=== PATIENT | female | born 1960 | race Caucasian/White ===

== ENCOUNTER 2016-06-07 22:47 | Emergency (ER) | payer MEDICARE, OTHER ==
[~2016-06-07] VITALS: Ht 157.5 cm; Wt 64.0 kg
[~2016-06-07 22:47] MED LIST: CIPR500T4 PO; CLIN-73 PO; HYDR-762 PO; IBUP-1542 PO
[2016-06-07 22:49] VITALS: Ht 157.5 cm; Wt 64.0 kg
== END 2016-06-08 01:37 | disposition left against medical advice (07) ==
LOC: FTE 22:47
DX: Z53.21 Procedure and treatment not carried out due to patient leaving prior to being seen by health care provider (principal)

== ENCOUNTER 2016-06-09 01:33 | Emergency (ER) | payer SELFPAY ==
[~2016-06-09] VITALS: Ht 162.6 cm; Wt 62.5 kg
[2016-06-09 02:12] VITALS: Ht 162.6 cm; Wt 62.5 kg
== END 2016-06-09 06:09 | disposition left against medical advice (07) ==
LOC: FTE 01:33
DX: Z53.21 Procedure and treatment not carried out due to patient leaving prior to being seen by health care provider (principal)

== ENCOUNTER 2016-07-02 13:26 | Emergency (ER) | payer MEDICARE, OTHER ==
[~2016-07-02] VITALS: Ht 162.6 cm; Wt 63.0 kg
[2016-07-02 13:32] VITALS: Ht 162.6 cm; Wt 63.0 kg
[2016-07-02] MEDS ORDERED: DOXY100T20 PO (15:03)
[2016-07-02] MEDS ORDERED: NAPR-260 PO (15:04)
--- NOTE | 2016-07-02 15:09 | ERD ---
ER Documentation Chief Complaint Date/Time DATE: 07/02/16 TIME: 15:05 Chief Complaint abcess on rt thigh x 4 days HPI This a 55-year-old female who presents the emergency department today for an abscess on her right thigh that has been there for the past 4-5 days. Patient has had abscesses in the past. She is hepatitis C positive. She is drug abuser. Denies any fevers or chills. ROS All systems reviewed and are negative except as per history of present illness. Medications Home Meds Active Scripts Naproxen* (Naprosyn*) 500 Mg Tablet, 500 MG PO BID Y for PAIN AND/OR INFLAMMATION, #30 TAB Prov:ADAIR JORGENSEN PA-C 07/02/16 Doxycycline Hyclate* (Doxycycline Hyclate*) 100 Mg Tablet.dr, 100 MG PO BID for 10 Days, TAB Prov:ADAIR JORGENSEN PA-C 07/02/16 Clindamycin Hcl* (Clindamycin Hcl*) 300 Mg Capsule, 300 MG PO TID for 10 Days, CAP Prov:MARIAM NG NP 04/04/16 Ibuprofen* (Motrin*) 600 Mg Tab, 600 MG PO Q6H Y for PAIN AND OR ELEVATED TEMP, #30 TAB Prov:MARIAM NG NP 04/04/16 Clindamycin Hcl* (Clindamycin Hcl*) 300 Mg Capsule, 300 MG PO TID for 10 Days, CAP Prov:GINNY EVANGELISTA PA-C 01/18/16 Clindamycin Hcl* (Clindamycin Hcl*) 300 Mg Capsule, 300 MG PO TID for 10 Days, CAP Prov:ROMIE PANDA MD 11/16/15 Hydrocodone Bit-Acetaminophen* ([place]*) 10-325 Mg Tablet, 1 TAB PO Q6 Y for PAIN , #7 TAB Prov:ROMIE PANDA MD 10/26/15 Ciprofloxacin Hcl* (Ciprofloxacin Hcl*) 500 Mg Tablet, 500 MG PO BID for 7 Days , TAB Prov:ROMIE PANDA MD 10/26/15 Allergies Allergies: Coded Allergies: cephalexin (Verified Allergy, Unknown, sob, 01/18/16) sulfamethoxazole (Verified Allergy, Unknown, sob, 01/18/16) trimethoprim (Verified Allergy, Unknown, sob, 01/18/16) PMhx/Soc History of Surgery: No Anesthesia Reaction: No Hx Neurological Disorder: No Hx Respiratory Disorders: No Hx Cardiac Disorders: No Hx Psychiatric Problems: No Hx Miscellaneous Medical Probl: Yes (Hep C) Hx Alcohol Use: No Hx Substance Use: Yes (HEROINE LAST USED 1500 TODAY) Hx Tobacco Use: Yes (1PACK/WEEK) Smoking Status: Current every day smoker Physical Exam Vitals Vital Signs Date Time Temp Pulse Resp B/P Pulse Ox O2 Delivery O2 Flow Rate FiO2 07/02/16 13:32 98.2 98 18 115/57 97 Physical Exam Const: Pleasant, no acute distress Head: Atraumatic Eyes: Normal Conjunctiva ENT: Normal External Ears, Nose and Mouth. Neck: Full range of motion..~ No meningismus. Resp: Clear to auscultation bilaterally Cardio: Regular rate and rhythm, no murmurs Abd: Soft, non tender, non distended. Normal bowel sounds Skin: Right thigh with 7 cm area of erythema and approximately 4 cm center of firmness. No purulent drainage. Mild tenderness palpation. Ext: No cyanosis, or edema Neur: Awake and alert Psych: Normal Mood and Affect Procedures/MDM This is a 55-year-old female who presents the emergency department today for a right thigh abscess. Patient has had these abscesses in the past. She is a drug abuser and does inject herself with heroin. Patient also reports using meth on occasion. She indicated that at one point she was given Keflex and Bactrim to treat an abscess and she had an allergic reaction to 1 of them but she is not sure which one. Patient has been seen here in this emergency department in the past and her last visit was in March for an abscess. At that time she was given clindamycin. Today on physical exam there is an approximate 7 cm area of erythema and 4 cm area of firmness and induration. There is no fluctuance and I do not feel the patient would benefit from an attempted incision and drainage at this time. I have explained this to the patient. I have explained to the patient that she will be placed on antibiotics and will need to return to the emergency department in 48 hours for a wound check. She is afebrile and otherwise well-appearing. Patient symptoms at this time is consistent with abscess and localized cellulitis. Low suspicion for deep space infection or tracking infection. Patient will be given a prescription for Naprosyn and doxycycline. I discussed at length smoking cessation with the patient as well as getting herself back into a drug rehab facility. Patient appeared motivated today however I have instructed her that she would need to follow-up with this with social work. Patient understood. Discussed the patient with Dr. Regalado and he is in agreement with the plan . Departure Diagnosis: Primary Impression: Abscess Condition: Fair Patient Instructions: Abscess, Antiobiotic Treatment Only Referrals: MADELINE HOOD MD (PCP) Additional Instructions: Call your primary care doctor TOMORROW for an appointment during the next 1-2 days.See the doctor sooner or return here if your condition worsens before your appointment time. Wound check in 48 hours Take antibiotics as prescribed Take Naprosyn or Motrin for pain ADAIR JORGENSEN PA-C Jul 02, 2016 15:09
== END 2016-07-02 15:30 | disposition home or self-care (01) ==
LOC: FTE 13:26
DX: L02.415 Cutaneous abscess of right lower limb (principal); F17.210 Nicotine dependence, cigarettes, uncomplicated
CPT/HCPCS: 99283

== ENCOUNTER 2016-11-18 16:40 | Emergency (ER) | payer MEDICARE, OTHER ==
[~2016-11-18] VITALS: Ht 162.6 cm; Wt 62.0 kg
[~2016-11-18 16:40] MED LIST changes: +DOXY100T20 PO; +NAPR-260 PO
[2016-11-18 16:42] VITALS: Ht 162.6 cm; Wt 62.0 kg
[2016-11-18] MEDS ORDERED: IBUPROFEN 600 MG TAB PO ONE (18:00)
[2016-11-18 18:07] LABS: BASOPHIL # 0.1 10^3/ul (0.0-0.1); BASOPHILS % 0.5 % (0.0-2.0); EOSINOPHILS # 0.1 10^3/ul (0.0-0.5); EOSINOPHILS % 0.5 % (0.0-7.0); HEMATOCRIT 32.9 % (37.0-47.0); HEMOGLOBIN 11.6 g/dl (12.0-16.0); LYMPHOCYTES # 1.1 10^3/ul (0.8-2.9); LYMPHOCYTES % 10.7 % (15.0-51.0); MEAN CORPUSCULAR HEMOGLOBIN 30.5 pg (29.0-33.0); MEAN CORPUSCULAR HGB CONC 35.3 g/dl (32.0-37.0); MEAN CORPUSCULAR VOLUME 86.6 fl (82.0-101.0); MEAN PLATELET VOLUME 10.5 fl (7.4-10.4); MONOCYTE # 0.7 10^3/ul (0.3-0.9); MONOCYTES % 6.8 % (0.0-11.0); NEUTROPHIL # 8.5 10^3/ul (1.6-7.5); NEUTROPHILS % 81.2 % (39.0-77.0); PLATELET COUNT 236 10^3/UL (140-415); RED CELL DISTRIBUTION WIDTH 11.9 % (11.5-14.5); WHITE BLOOD COUNT 10.5 10^3/ul (4.8-10.8)
--- NOTE | 2016-11-18 18:19 | RADRPT ---
PROCEDURE: US Lower extremity Venous. CLINICAL INDICATION: calf pain and swelling, r/o DVT TECHNIQUE: Multiple sonographic images of the right lower extremity deep venous system was obtaine d utilizing grayscale, color-flow, compressive sonography and doppler imaging with augmentation. Th e images were reviewed on a PACS workstation. COMPARISON: None. FINDINGS: There is normal compressibility and flow within the right common femoral, deep femoral, superficial femoral and popliteal veins. The deep veins the calf were incompletely visualized. IMPRESSION: No sonographic evidence for deep venous thrombosis in the right lower extremity. Physician Dino Date Time Electronically viewed and signed by Physician Dino on 11/18/2016 18:19 ML/
[2016-11-18 18:28] LABS: CALCIUM 8.7 mg/dl (8.4-10.2); CREATININE 1.08 mg/dl (0.44-1.00); INR 0.95; POTASSIUM 3.6 mmol/L (3.5-5.1); PROTIME 12.7 Sec (12.2-14.2)
[2016-11-18 18:30] LABS: D-DIMER 995.06 ng/ml (<460)
[2016-11-18 19:12] LABS: URINE BLOOD (Dip) POC Negative (NEGATIVE)
--- NOTE | 2016-11-18 19:43 | ERD ---
ER Documentation Chief Complaint Date/Time DATE: 11/18/16 TIME: 19:42 Chief Complaint RT CALF PAIN / CRAMPS X 3 DAYS , SENT BY PMD TO R/O DVT HPI This is a 56-year-old female presenting to the emergency department with right calf pain, tenderness and cramping 3 days. Patient went to urgent care earlier today and was told to go to the emergency room to rule out a DVT. Patient is currently homeless and states she is walking around frequently. No suspected trauma to area. No recent prolonged immobilization or recent surgery. No obesity. No heart failure. Patient is not . No oral contraceptive use. Patient does smoke daily. ROS All systems reviewed and are negative except as per history of present illness. Medications Home Meds Active Scripts Naproxen* (Naprosyn*) 500 Mg Tablet, 500 MG PO BID Y for PAIN AND/OR INFLAMMATION, #30 TAB Prov:ADAIR JORGENSEN PA-C 07/02/16 Doxycycline Hyclate* (Doxycycline Hyclate*) 100 Mg Tablet.dr, 100 MG PO BID for 10 Days, TAB Prov:ADAIR JORGENSEN PA-C 07/02/16 Clindamycin Hcl* (Clindamycin Hcl*) 300 Mg Capsule, 300 MG PO TID for 10 Days, CAP Prov:MARIAM NG NP 04/04/16 Ibuprofen* (Motrin*) 600 Mg Tab, 600 MG PO Q6H Y for PAIN AND OR ELEVATED TEMP, #30 TAB Prov:MARIAM NG NP 04/04/16 Clindamycin Hcl* (Clindamycin Hcl*) 300 Mg Capsule, 300 MG PO TID for 10 Days, CAP Prov:GINNY EVANGELISTA PA-C 01/18/16 Clindamycin Hcl* (Clindamycin Hcl*) 300 Mg Capsule, 300 MG PO TID for 10 Days, CAP Prov:ROMIE PANDA MD 11/16/15 Hydrocodone Bit-Acetaminophen* ([place]*) 10-325 Mg Tablet, 1 TAB PO Q6 Y for PAIN , #7 TAB Prov:ROMIE PNADA MD 10/26/15 Ciprofloxacin Hcl* (Ciprofloxacin Hcl*) 500 Mg Tablet, 500 MG PO BID for 7 Days , TAB Prov:ROMIE PANDA MD 10/26/15 Allergies Allergies: Coded Allergies: cephalexin (Verified Allergy, Unknown, sob, 11/18/16) sulfamethoxazole (Verified Allergy, Unknown, sob, 11/18/16) trimethoprim (Verified Allergy, Unknown, sob, 11/18/16) PMhx/Soc Medical and Surgical Hx: pt denies Surgical Hx History of Surgery: No Anesthesia Reaction: No Hx Neurological Disorder: No Hx Respiratory Disorders: No Hx Cardiac Disorders: No Hx Psychiatric Problems: No Hx Miscellaneous Medical Probl: Yes (Hep C) Hx Alcohol Use: No Hx Substance Use: Yes (HEROINE LAST USED 1500 TODAY) Hx Tobacco Use: Yes (1PACK/WEEK) Smoking Status: Current every day smoker Physical Exam Vitals Vital Signs Date Time Temp Pulse Resp B/P Pulse Ox O2 Delivery O2 Flow Rate FiO2 11/18/16 19:44 98.3 98 18 112/88 97 Room Air 11/18/16 16:42 97.9 114 18 159/67 97 Physical Exam Const: [] Head: Atraumatic Eyes: Normal Conjunctiva ENT: Normal External Ears, Nose and Mouth. Neck: Full range of motion..~ No meningismus. Resp: Clear to auscultation bilaterally Cardio: Regular rate and rhythm, no murmurs Abd: Soft, non tender, non distended. Normal bowel sounds Skin: No petechiae or rashes Back: No midline or flank tenderness Ext: No cyanosis, or edema Neur: Awake and alert Psych: Normal Mood and Affect Result Diagram: 11/18/16 1748 11/18/16 1748 Results 24 hrs Laboratory Tests Test 11/18/16 17:48 11/18/16 19:18 White Blood Count 10.510^3/ul Red Blood Count 3.8010^6/ul Hemoglobin 11.6g/dl Hematocrit 32.9% Mean Corpuscular Volume 86.6fl Mean Corpuscular Hemoglobin 30.5pg Mean Corpuscular Hemoglobin Concent 35.3g/dl Red Cell Distribution Width 11.9% Platelet Count 81771^3/UL Mean Platelet Volume 10.5fl Neutrophils % 81.2% Lymphocytes % 10.7% Monocytes % 6.8% Eosinophils % 0.5% Basophils % 0.5% Nucleated Red Blood Cells % 0.0/100WBC Neutrophils # 8.510^3/ul Lymphocytes # 1.110^3/ul Monocytes # 0.710^3/ul Eosinophils # 0.110^3/ul Basophils # 0.110^3/ul Nucleated Red Blood Cells # 0.010^3/ul Prothrombin Time 12.7Sec Prothrombin Time Ratio 1.0 INR International Normalized Ratio 0.95 D-Dimer 995.06ng/ml D-Dimer Comment Sodium Level 131mmol/L Potassium Level 3.6mmol/L Chloride Level 91mmol/L Carbon Dioxide Level 24mmol/L Anion Gap 20 Blood Urea Nitrogen 24mg/dl Creatinine 1.08mg/dl Glucose Level 77mg/dl Calcium Level 8.7mg/dl Bedside Urine pH (LAB) 6.0 Bedside Urine Protein (LAB) Trace Bedside Urine Glucose (UA) Negative Bedside Urine Ketones (LAB) Negative Bedside Urine Blood Negative Bedside Urine Nitrite (LAB) Negative Bedside Urine Leukocyte Esterase (L Trace Current Medications Medications (Trade) Dose Ordered Sig/Jessica Route PRN Reason Start Time Stop Time Status Last Admin Dose Admin Ibuprofen (Motrin) 600 mg ONCE ONCE PO 11/18/16 18:00 11/18/16 18:01 DC 11/18/16 17:53 Procedures/MDM [place] [id number] Radiology Main Line: [phone] DIAGNOSTIC IMAGING REPORT Patient: JOSIE SOW : 1960 Age: 56 Sex: F MR #: [id number] DOS: 11/18/16 1730 Ordering MD: HUSSEIN BELLA NP Location: [facility] Room/Bed: PROCEDURE: US Lower extremity Venous. CLINICAL INDICATION: calf pain and swelling, r/o DVT TECHNIQUE: Multiple sonographic images of the right lower extremity deep venous system was obtained utilizing grayscale, color-flow, compressive sonography and doppler imaging with augmentation. The images were reviewed on a PACS workstation. COMPARISON: None. FINDINGS: There is normal compressibility and flow within the right common femoral, deep femoral, superficial femoral and popliteal veins. The deep veins the calf were incompletely visualized. IMPRESSION: No sonographic evidence for deep venous thrombosis in the right lower extremity. MDM: 56-year old female presenting to ER for right calf pain and tenderness x 3 days. Sent by urgent care to r/o DVT. No prolonged immobilization. No recent surgery or trauma. Patient is not obese. Does not take any medications. Patient is not . Well score is 4.5 with moderate risk. Labs show slightly elevated creatinine 1.08. No significant infection or anemia. D-Dimer elevated at 995.06. Urine dip shows trace leukocyte Estrace and trace protein. Urine negative. US right lower extremity reviewed by radiologist shows no sonographic evidence for deep venous thrombosis in the right lower extremity. Patient is slightly tachycardic upon arrival at 114bpm. Patient states she is nervous about results and therefore might affect her HR. Upon reassessment, I discussed findings with patient and she states she is feeling relieved and much better. Vitals upon discharge show normal HR and BP. Patient states she is currently homeless and she is given resources for local homeless shelters. Low suspicion for DVT. Differential diagnosis includes but not limited to muscle strain, venous insufficiency, cellulitis, unilateral leg swelling and lymphangitis. Patient is appropriate for outpatient management and instructed to take Tylenol and/or Motrin for pain. Instructed patient to follow-up with primary care provider in the next 2-3 days for reassessment. Return to ED for any high fever , chest pain, difficulty breathing, shortness breath, wheezing, vomiting, diarrhea, abdominal pain or any new or worsening symptoms. Patient verbalizes understanding. All questions answered at discharge. Departure Diagnosis: Primary Impression: Calf pain Laterality: right Qualified Code: M79.661 - Right calf pain Condition: Stable HUSSEIN BELLA NP Nov 18, 2016 19:43
[2016-11-18 19:44] VITALS: BP 112/88; PULSE 98; RESP 18; TEMP 98.3
[2016-11-18 21:54] LABS: URINE BLOOD (Dip) POC Negative (NEGATIVE)
[2016-11-25 16:13] LABS: URINE BLOOD (Dip) POC Negative (NEGATIVE)
[2016-11-25 16:13] LABS: URINE BLOOD (Dip) POC Negative (NEGATIVE)
== END 2016-11-18 19:50 | disposition home or self-care (01) ==
LOC: FTE 16:40
DX: M79.661 Pain in right lower leg (principal); F17.210 Nicotine dependence, cigarettes, uncomplicated
CPT/HCPCS: 36415; 80048; 81003; 85025; 85378; 85610; 93005; 93971